=== PATIENT | male | born 1990 | race Hispanic/Latino ===

== ENCOUNTER 2021-12-31 15:19 | Emergency (ER) | payer OTHER ==
[~2021-12-31] VITALS: Ht 167.6 cm; Wt 102.1 kg
[2021-12-31] MEDS ORDERED: LIDOCAINE HCL-MPF 2% 10ML AMP IJ ONE (16:25)
[2021-12-31] MEDS ORDERED: LIDOCAINE HCL 1% 20 ML VIAL INJ SCH (16:30)
[2021-12-31] MEDS ORDERED: HYDROCODONE/ACETAMINOPHEN 10/325 MG TAB PO ONE (16:30)
[2021-12-31] MEDS ORDERED: CEPHALEXIN 500 MG CAPSULE PO ONE (16:30)
[2021-12-31] MEDS ORDERED: CEPH500B PO (16:57)
[2021-12-31 17:01] VITALS: BP 155/83
== END 2021-12-31 17:07 | disposition home or self-care (01) ==
LOC: EDH 15:19
DX: S60.352A Superficial foreign body of left thumb, initial encounter (principal); I10 Essential (primary) hypertension; W45.8XXA Other foreign body or object entering through skin, initial encounter; Y92.89 Other specified places as the place of occurrence of the external cause; Y93.89 Activity, other specified; Y99.8 Other external cause status
CPT/HCPCS: 99284; 73140; J3490